=== PATIENT | female | born 1945 ===

== ENCOUNTER 2018-06-18 13:52 | Inpatient (IN) | payer OTHER ==
[2018-06-18 14:01] VITALS: BMI 22.1
[2018-06-18] MEDS ORDERED: Iodixanol 320 MG/ML 100 ML BOTTLE IV ONE (14:08)
[2018-06-18] MEDS ORDERED: Lidocaine 2% PF (10 ml) Amp ONE (14:09)
[2018-06-18] MEDS ORDERED: Verapamil 0 ML ONE (14:09)
--- NOTE | 2018-06-18 14:16 | C.PDOC ---
History Of Present Illness 72 y/o female, w/PMhx of HTN, presents to the ER complaining of shortness of breath and nausea which began when she woke up in the morning today. Patient states that she felt better when she went outside. She notes that she went to a clinic and she had an EKG.Afterwards, she was brought in by ambulance to the hospital. Currently, patient denies having CP, SOB, fever, chills, nausea, vomiting, diaphoresis, and extremity edema. Time Seen by Provider: 06/18/18 13:55 Chief Complaint (Nursing): Shortness Of Breath History Per: Patient History/Exam Limitations: no limitations Onset/Duration Of Symptoms: Hrs Current Symptoms Are (Timing): Gone Severity: Moderate Past Medical History Reviewed: Historical Data, Nursing Documentation, Vital Signs Vital Signs: Last Vital Signs Temp Pulse Resp 16 06/18/18 14:06 BP Pulse Ox 97 06/18/18 14:06 - Medical History PMH: HTN Surgical History: No Surg Hx Family History: States: No Known Family Hx - Social History Hx Alcohol Use: No Hx Substance Use: No - Immunization History Hx Tetanus Toxoid Vaccination: No Hx Influenza Vaccination: No Hx Pneumococcal Vaccination: No Review Of Systems Except As Marked, All Systems Reviewed And Found Negative. Constitutional: Negative for: Fever, Chills Respiratory: Positive for: Shortness of Breath (currently resolved). Negative for: Cough Gastrointestinal: Positive for: Nausea (currently resolved). Negative for: Vomiting Physical Exam - Physical Exam Additional Physical Exam Comments: Constitutional: No acute distress. Head: Normocephalic. Atraumatic. Eyes: PERRL. ENT: Moist mucous membranes. Neck: Supple. Cardiovascular: Regular rate. Radial pulse 2+ bilaterally. Chest: No tenderness. Respiratory: Clear to auscultation bilaterally. GI: Soft. Nontender. Nondistended. Back: No CVA tenderness. Musculoskeletal: No tenderness or swelling of extremities. Skin: No rash. Neurologic: Alert, no focal deficit. ED Course And Treatment - Laboratory Results Result Diagrams: 06/18/18 15:01 06/18/18 15:01 ECG: Interpreted By Me, Viewed By Me ECG Rhythm: Sinus Rhythm Interpretation Of ECG: NSR with LBBB and no concordant ST elevations Rate From EC O2 Sat by Pulse Oximetry: 97 (RA) Pulse Ox Interpretation: Normal Medical Decision Making Medical Decision Making: Plan: --Labs --CXR CXR Results: Date of service: 06/18/2018 PROCEDURE: CHEST RADIOGRAPH, 1 VIEW HISTORY: chest pain COMPARISON: None available. FINDINGS: LUNGS: Clear. PLEURA: No pneumothorax or pleural fluid seen. CARDIOVASCULAR: Normal. OSSEOUS STRUCTURES: No significant abnormalities. VISUALIZED UPPER ABDOMEN: Normal. OTHER FINDINGS: None. IMPRESSION: No active disease. Updates: , job training specialist, immediately reviewed EKG. He recommended treating patient with Brilinta 180 mg and Heparin 5000 units. He states that he will take patient to sugar laboratory assistant. Dr. Womack came to ED to see patient and after evaluating her in person, decided to cancel [facility]. Dr. Roman accepts patient to hospitalist service. Disposition Discussed With : Carlos Womack Doctor Will See Patient In The: ED - Disposition Disposition: HOSPITALIZED Disposition Time: 16:00 Condition: FAIR - Clinical Impression Clinical Impression: Dyspnea, LBBB (left bundle branch block), Heart murmur - Scribe Statement The provider has reviewed the documentation as recorded by the Charly Graham Provider Attestation: All medical record entries made by the Charly were at my direction and pe rsonally dictated by me. I have reviewed the chart and agree that the record accurately reflects my personal performance of the history, physical exam, medical decision making, and the department course for this patient. I have also personally directed, reviewed, and agree with the discharge instructions and disposition.
[2018-06-18 15:06] LABS: BASO % 0.8 % (0.0-2.0); EOS % 0.4 % (0.0-4.0); HEMOGLOBIN 12.5 g/dL (11.0-16.0); LYMPH # 1.5 K/uL (1.0-4.3); LYMPH % 36.6 % (20.0-40.0); MEAN CELL VOLUME 88.2 fL (81.0-99.0); MEAN CORPUSCULAR HEMOGLOBIN 28.9 pg (27.0-31.0); MEAN CORPUSCULAR HGB CONC 32.8 g/dL (33.0-37.0); MEAN PLATELET VOLUME 9.1 fL (7.2-11.7); MONO # 0.3 K/uL (0.0-0.8); MONO % 6.3 % (0.0-10.0); NEUT # 2.3 K/uL (1.8-7.0); NEUT % 55.9 % (50.0-75.0); NRBC % 0.1 % (0.0-2.0); RBC 4.33 Mil/uL (3.80-5.20); RED CELL DISTRIBUTION WIDTH 15.2 % (11.5-14.5); WHITE BLOOD COUNT 4.2 K/uL (4.8-10.8)
[2018-06-18 15:09] LABS: INR 1.1; PROTHROMBIN TIME 11.8 SECONDS (9.7-12.2)
--- NOTE | 2018-06-18 15:10 | RAD ---
Date of service: 06/18/2018 PROCEDURE: CHEST RADIOGRAPH, 1 VIEW HISTORY: chest pain COMPARISON: None available. FINDINGS: LUNGS: Clear. PLEURA: No pneumothorax or pleural fluid seen. CARDIOVASCULAR: Normal. OSSEOUS STRUCTURES: No significant abnormalities. VISUALIZED UPPER ABDOMEN: Normal. OTHER FINDINGS: None. IMPRESSION: No active disease.
[2018-06-18 15:11] LABS: BLOOD UREA NITROGEN 15 mg/dL (7-17); CALCIUM 9.6 mg/dl (8.6-10.4); GFR NON-AFRICAN AMERICAN > 60
[2018-06-18 15:12] LABS: ALB/GLOB RATIO 1.5 (1.0-2.1); ALBUMIN 4.7 g/dL (3.5-5.0); ALT/SGPT 29 U/L (9-52); AST/SGOT 27 U/L (14-36); CK-MB 3.35 ng/mL (0.0-3.38)
[2018-06-18] MEDS ORDERED: Labetalol 5mg/ml (4ml) ONE (15:23)
[2018-06-18] MEDS ORDERED: Labetalol 25mg/5ml Syringe IVP STA (15:25)
--- NOTE | 2018-06-18 15:39 | CP.PCM.CON ---
<Roberto Johnson - Last Filed: 06/18/18 16:21> History of Present Illness - History of Present Illness History of Present Illness: Roberto Johnson, PGY-[address] Woamck CC: Ms. Shah is a pleasant Indian speaking 72 year old Female who presents with shortness of breath and nausea which began when she woke up in the morning. Denies congestion, recent URI, and sick contacts. Patient states that she felt better upon drinking orange juice and going to a medical clinic. She notes that she went to [place] where an EKG was performed with unknown results. Patient was then brought in by ambulance to the hospital. Currently, patient denies having CP, SOB, palpitations, fever, dizziness, headaches, chills, nausea, vomiting, diaphoresis, and extremity edema. Patient states she walks independently and is able to do her ADLs and spend time with family. Denies smoking and family hx of cardiac issues in family. In the ED, EKG concerning for STEMI was evaluated. Recommended treating patient with Brilinta 180 mg and Heparin 5000 units. Past Patient History - Past Social History Smoking Status: Never Smoked - CARDIAC Hx Hypertension: Yes - PSYCHIATRIC Hx Substance Use: No - SURGICAL HISTORY Hx Surgeries: No Meds Allergies/Adverse Reactions: Allergies Allergy/AdvReac Type Severity Reaction Status Date / Time No Known Allergies Allergy Verified 06/18/18 13:53 - Medications Medications: Current Medications Hydralazine HCl (Apresoline) 50 mg PO BID [facility]ERSON Physical Exam - Constitutional Appears: Well, Non-toxic, No Acute Distress - Head Exam Head Exam: ATRAUMATIC, NORMAL INSPECTION, NORMOCEPHALIC - Eye Exam Eye Exam: EOMI, Normal appearance Pupil Exam: PERRL - ENT Exam ENT Exam: Mucous Membranes Moist - Neck Exam Neck exam: Positive for: Normal Inspection - Respiratory Exam Respiratory Exam: Clear to Auscultation Bilateral, NORMAL BREATHING PATTERN. absent: Rales, Rhonchi, Wheezes - Cardiovascular Exam Cardiovascular Exam: Tachycardia, REGULAR RHYTHM, +S1, +S2, Systolic Murmur - GI/Abdominal Exam GI & Abdominal Exam: Soft. absent: Distended, Guarding, Tenderness - Extremities Exam Extremities exam: Positive for: normal inspection. Negative for: pedal edema - Back Exam Back exam: absent: CVA tenderness (L), CVA tenderness (R) - Neurological Exam Neurological exam: Alert, Normal Gait, Oriented x3 - Psychiatric Exam Psychiatric exam: Normal Affect, Normal Mood - Skin Skin Exam: Dry, Intact, Normal Color, Warm Results - Vital Signs Recent Vital Signs: Last Vital Signs Temp Pulse 88 06/18/18 15:25 Resp 18 06/18/18 15:25 BP 186/86 H 06/18/18 15:25 Pulse Ox 100 06/18/18 15:25 - Labs Result Diagrams: 06/18/18 15:01 06/18/18 15:01 Labs: Laboratory Results - last 24 hr 06/18/18 06/18/18 06/18/18 13:58 15:01 15:01 WBC 4.2 L RBC 4.33 Hgb 12.5 Hct 38.2 MCV 88.2 MCH 28.9 MCHC 32.8 L RDW 15.2 H Plt Count 172 MPV 9.1 Neut % (Auto) 55.9 Lymph % (Auto) 36.6 [place] % (Auto) 6.3 Eos % (Auto) 0.4 Baso % (Auto) 0.8 Neut # (Auto) 2.3 Lymph # (Auto) 1.5 [place] # (Auto) 0.3 Eos # (Auto) 0.0 Baso # (Auto) 0.0 PT 11.8 INR 1.1 APTT 35 H Sodium Potassium Chloride Carbon Dioxide Anion Gap BUN Creatinine Est GFR ( Amer) Est GFR (Non-Af Amer) POC Glucose (mg/dL) 91 Random Glucose Calcium Total Bilirubin AST ALT Alkaline Phosphatase Total Creatine Kinase CK-MB (Mass) Troponin I Total Protein Albumin Globulin Albumin/Globulin Ratio 06/18/18 06/18/18 15:01 15:01 WBC RBC Hgb Hct MCV MCH MCHC RDW Plt Count MPV Neut % (Auto) Lymph % (Auto) [place] % (Auto) Eos % (Auto) Baso % (Auto) Neut # (Auto) Lymph # (Auto) [place] # (Auto) Eos # (Auto) Baso # (Auto) PT INR APTT Sodium 143 Potassium 4.0 Chloride 103 Carbon Dioxide 30 Anion Gap 14 BUN 15 Creatinine 0.6 L Est GFR ( Amer) > 60 Est GFR (Non-Af Amer) > 60 POC Glucose (mg/dL) Random Glucose 98 Calcium 9.6 Total Bilirubin 0.5 AST 27 ALT 29 Alkaline Phosphatase 76 Total Creatine Kinase 140 H CK-MB (Mass) 3.35 Troponin I < 0.0120 Total Protein 8.0 Albumin 4.7 Globulin 3.2 Albumin/Globulin Ratio 1.5 Assessment & Plan - Assessment and Plan (Free Text) Assessment: 72 F with HTN on no medications who presents with shortness of breath, hypertensive urgency and abnormal EKG readings. New onset Shortness of Breath CXR shows no pneumothorax or pulmonary embolism; no active disease. EKG shows NSR @ 93 bpm, LBBB without ST elevations. Ticagrelor and Heparin given initially in ED. No cardiac cath warranted at this time. Patient hemodynamically stable and does not complain of chest pain, radiation, pressure, diaphoresis or nausea Prelim echo results show EF 45% with mild MR and TR. F/u repeat EKGs and Trops Plan for Cardiac cath in AM, NPO after midnight Hypertensive Urgency Labetalol 10 mg given in ED F/u renal artery duplex study Hydralazine and Carvedilol for BP control Patient seen, case reviewed and plan discussed with Dr. Womack. Future recs per Raji Womack. Roberto Johnson, PGY-1 <Carlos Womack - Last Filed: 06/18/18 18:46> Meds - Medications Medications: Current Medications Aspirin (Aspirin Chewable) 81 mg PO DAILY [facility] Carvedilol (Coreg) 25 mg PO BID [facility] Dextrose (Dextrose 50% Inj) 0 ml IV STAT PRN; Protocol PRN Reason: Hypoglycemia Protocol Dextrose (Glutose 15) 0 gm PO ONCE PRN; Protocol PRN Reason: Hypoglycemia Protocol Famotidine (Pepcid) 20 mg PO DAILY [facility] Glucagon (Glucagen Diagnostic Kit) 0 mg IM STAT PRN; Protocol PRN Reason: Hypoglycemia Protocol Hydralazine HCl (Apresoline) 10 mg PO QID [facility] Last Admin: 06/18/18 18:26 Dose: 10 mg Dextrose (Dextrose 5% In Water 1000 Ml) 1,000 mls @ 0 mls/hr IV .Q0M PRN; Protocol PRN Reason: Hypoglycemia Protocol Heparin Sodium/Sodium Chloride (Heparin 50102 Units/250ml 1/2 Normal Saline) 25,000 units in 250 mls @ 5.987 mls/hr IV .Q24H PRN; Protocol PRN Reason: PROTOCOL Influenza Virus Vaccine (Fluzone Quad 1527-0900) 60 mcg IM .ONCE ONE Stop: 06/20/18 18:05 Losartan Potassium (Cozaar) 50 mg PO DAILY [facility] Metoprolol Tartrate (Lopressor) 5 mg IVP PRN [place] Pneumococcal Polyvalent Vaccine (Pneumovax 23 Vaccine) 0.5 ml IM .ONCE ONE Stop: 06/20/18 18:05 Results - Vital Signs Recent Vital Signs: Last Vital Signs Temp 98.4 F 06/18/18 17:45 Pulse 65 06/18/18 18:27 Resp 20 06/18/18 17:45 BP 177/75 H 06/18/18 18:27 Pulse Ox 98 06/18/18 17:45 - Labs Result Diagrams: 06/18/18 15:01 06/18/18 15:01 Labs: Laboratory Results - last 24 hr 06/18/18 06/18/18 06/18/18 13:58 15:01 15:01 WBC 4.2 L RBC 4.33 Hgb 12.5 Hct 38.2 MCV 88.2 MCH 28.9 MCHC 32.8 L RDW 15.2 H Plt Count 172 MPV 9.1 Neut % (Auto) 55.9 Lymph % (Auto) 36.6 [place] % (Auto) 6.3 Eos % (Auto) 0.4 Baso % (Auto) 0.8 Neut # (Auto) 2.3 Lymph # (Auto) 1.5 [place] # (Auto) 0.3 Eos # (Auto) 0.0 Baso # (Auto) 0.0 PT 11.8 INR 1.1 APTT 35 H Sodium Potassium Chloride Carbon Dioxide Anion Gap BUN Creatinine Est GFR ( Amer) Est GFR (Non-Af Amer) POC Glucose (mg/dL) 91 Random Glucose Calcium Total Bilirubin AST ALT Alkaline Phosphatase Total Creatine Kinase CK-MB (Mass) Troponin I Total Protein Albumin Globulin Albumin/Globulin Ratio Blood Type Antibody Screen 06/18/18 06/18/18 06/18/18 15:01 15:01 15:19 WBC RBC Hgb Hct MCV MCH MCHC RDW Plt Count MPV Neut % (Auto) Lymph % (Auto) [place] % (Auto) Eos % (Auto) Baso % (Auto) Neut # (Auto) Lymph # (Auto) [place] # (Auto) Eos # (Auto) Baso # (Auto) PT INR APTT Sodium 143 Potassium 4.0 Chloride 103 Carbon Dioxide 30 Anion Gap 14 BUN 15 Creatinine 0.6 L Est GFR ( Amer) > 60 Est GFR (Non-Af Amer) > 60 POC Glucose (mg/dL) Random Glucose 98 Calcium 9.6 Total Bilirubin 0.5 AST 27 ALT 29 Alkaline Phosphatase 76 Total Creatine Kinase 140 H CK-MB (Mass) 3.35 Troponin I < 0.0120 Total Protein 8.0 Albumin 4.7 Globulin 3.2 Albumin/Globulin Ratio 1.5 Blood Type O POSITIVE Antibody Screen Negative 06/18/18 18:28 WBC RBC Hgb Hct MCV MCH MCHC RDW Plt Count MPV Neut % (Auto) Lymph % (Auto) [place] % (Auto) Eos % (Auto) Baso % (Auto) Neut # (Auto) Lymph # (Auto) [place] # (Auto) Eos # (Auto) Baso # (Auto) PT INR APTT Sodium Potassium Chloride Carbon Dioxide Anion Gap BUN Creatinine Est GFR ( Amer) Est GFR (Non-Af Amer) POC Glucose (mg/dL) 90 Random Glucose Calcium Total Bilirubin AST ALT Alkaline Phosphatase Total Creatine Kinase CK-MB (Mass) Troponin I Total Protein Albumin Globulin Albumin/Globulin Ratio Blood Type Antibody Screen Attending/Attestation - Attestation I have personally seen and examined this patient.: Yes I have fully participated in the care of the patient.: Yes I have reviewed all pertinent clinical information: Yes Notes (Text): 06/18/18 18:46 72 yo sent in from office for LBBB SOB echo - EF 45% plan for cath in am IV heparin n npo p mn
--- NOTE | 2018-06-18 16:01 | CP.PCM.HP ---
<George Nunes - Last Filed: 06/18/18 18:47> History of Present Illness - History of Present Illness History of Present Illness: History and physical for Hospitalist service CC "dizziness, nausea" HPI: Patient is a 72 year old [place] Citizen female who presents with her daughter Colleen for evaluation after she was found to have a new left bundle branch block on EKG this morning. Patient states she experienced dizziness described as heaviness in her head and nausea after she woke up at 6:30 this morning. Her daughter Colleen states that she saw that patient looked pale and patient told her she felt unwell this morning. Patient stated that she initially felt warm, however later felt cold after she showered this morning. Patient reports that her dizziness and nausea resolved at around 9am this morning and she states she has not experienced those symptoms since then. Patient also reported that she initially felt tired, however never experienced any chest pressure or palpitations. Laura anand's daughter dropped her children off at school this morning, and then brought her mother in for evaluation at an urgent care. She was found to have elevated blood pressure with systolic BP in 190s, and EKG revealed LBBB. At the urgent care, patient received ASA 325mg, Norvasc 10mg and Nitropaste x1 prior to arriving at the ED via EMS. On arrival, patient continues to deny chest pressure, shortness of breath, headache, dizziness, nausea, vomiting, diaphoresis, lightheadedness, abdominal pain, diarrhea, constipation, leg swelling or leg pain. Patient states that her initial dizziness did not feel like a room spinning sensation. PMD: none PMH: Hypertension PSH: dental surgeries at the age of 49 Family hx: Mother had hypertension. Patient states that her family lives into their 90s Social hx: Denies tobacco, alcohol or drug use. 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 Patient walks briskly/jogs daily. Home meds: None Allergies: NKDA Healthcare proxy: Daughter Colleen Centeno [phone] No living will in place No advanced healthcare directive in place Present on Admission - Present on Admission Any Indicators Present on Admission: No History of DVT/PE: No History of Uncontrolled Diabetes: No Urinary Catheter: No Decubitus Ulcer Present: No Review of Systems - Constitutional Constitutional: Fatigue. absent: Chills, Fever, Weakness - EENT Eyes: absent: Change in Vision Nose/Mouth/Throat: absent: Sinus Pressure, Sore Throat - Cardiovascular Cardiovascular: absent: Chest Pain, Chest Pain at Rest, Diaphoresis, Dyspnea - Respiratory Respiratory: absent: Cough, Dyspnea - Gastrointestinal Gastrointestinal: Nausea. absent: Abdominal Pain, Diarrhea, Vomiting - Genitourinary Genitourinary: absent: Difficulty Urinating, Dysuria, Urinary Incontinence - Musculoskeletal Musculoskeletal: absent: Back Pain, Numbness, Tingling - Neurological Neurological: Dizziness. absent: Confusion, Numbness, Headaches - Psychiatric Psychiatric: absent: Anxiety, Depression Past Patient History - Past Social History Smoking Status: Never Smoked - CARDIAC Hx Hypertension: Yes - PSYCHIATRIC Hx Substance Use: No - SURGICAL HISTORY Hx Surgeries: No Meds Allergies/Adverse Reactions: Allergies Allergy/AdvReac Type Severity Reaction Status Date / Time No Known Allergies Allergy Verified 06/18/18 13:53 Physical Exam - Constitutional Appears: Well, No Acute Distress - Head Exam Head Exam: ATRAUMATIC, NORMOCEPHALIC - Eye Exam Eye Exam: EOMI, PERRL - ENT Exam ENT Exam: Mucous Membranes Moist - Neck Exam Neck exam: Positive for: Full Rom. Negative for: Tenderness - Respiratory Exam Respiratory Exam: Clear to Auscultation Bilateral. absent: Rales, Rhonchi, Wheezes, Stridor - Cardiovascular Exam Cardiovascular Exam: +S1, +S2, Systolic Murmur. absent: Gallop, JVD, Rubs - GI/Abdominal Exam GI & Abdominal Exam: Normal Bowel Sounds, Soft. absent: Distended, Firm, Guarding, Tenderness - Extremities Exam Extremities exam: Positive for: normal capillary refill, pedal pulses present. Negative for: calf tenderness, pedal edema, tenderness - Back Exam Back exam: absent: CVA tenderness (L), CVA tenderness (R) - Neurological Exam Neurological exam: Alert, CN II-XII Intact, Oriented x3 - Psychiatric Exam Psychiatric exam: Normal Affect, Normal Mood - Skin Skin Exam: Dry, Intact, Warm Results - Vital Signs Recent Vital Signs: Last Vital Signs Temp Pulse 88 06/18/18 15:25 Resp 18 06/18/18 15:25 BP 186/86 H 06/18/18 15:25 Pulse Ox 100 06/18/18 15:25 - Labs Result Diagrams: 06/18/18 15:01 06/18/18 15:01 Labs: Laboratory Results - last 24 hr 06/18/18 06/18/18 06/18/18 13:58 15:01 15:01 WBC 4.2 L RBC 4.33 Hgb 12.5 Hct 38.2 MCV 88.2 MCH 28.9 MCHC 32.8 L RDW 15.2 H Plt Count 172 MPV 9.1 Neut % (Auto) 55.9 Lymph % (Auto) 36.6 [place] % (Auto) 6.3 Eos % (Auto) 0.4 Baso % (Auto) 0.8 Neut # (Auto) 2.3 Lymph # (Auto) 1.5 [place] # (Auto) 0.3 Eos # (Auto) 0.0 Baso # (Auto) 0.0 PT 11.8 INR 1.1 APTT 35 H Sodium Potassium Chloride Carbon Dioxide Anion Gap BUN Creatinine Est GFR ( Amer) Est GFR (Non-Af Amer) POC Glucose (mg/dL) 91 Random Glucose Calcium Total Bilirubin AST ALT Alkaline Phosphatase Total Creatine Kinase CK-MB (Mass) Troponin I Total Protein Albumin Globulin Albumin/Globulin Ratio Blood Type Antibody Screen 06/18/18 06/18/18 06/18/18 15:01 15:01 15:19 WBC RBC Hgb Hct MCV MCH MCHC RDW Plt Count MPV Neut % (Auto) Lymph % (Auto) [place] % (Auto) Eos % (Auto) Baso % (Auto) Neut # (Auto) Lymph # (Auto) [place] # (Auto) Eos # (Auto) Baso # (Auto) PT INR APTT Sodium 143 Potassium 4.0 Chloride 103 Carbon Dioxide 30 Anion Gap 14 BUN 15 Creatinine 0.6 L Est GFR ( Amer) > 60 Est GFR (Non-Af Amer) > 60 POC Glucose (mg/dL) Random Glucose 98 Calcium 9.6 Total Bilirubin 0.5 AST 27 ALT 29 Alkaline Phosphatase 76 Total Creatine Kinase 140 H CK-MB (Mass) 3.35 Troponin I < 0.0120 Total Protein 8.0 Albumin 4.7 Globulin 3.2 Albumin/Globulin Ratio 1.5 Blood Type O POSITIVE Antibody Screen Negative Assessment & Plan - Assessment and Plan (Free Text) Plan: Assessment/plan 72 year old [place] Citizen female who presented for complaints of dizziness and nausea, which resolved, however outpatient EKG revealed new left bundle branch block. Admitted for concern for ME Plan Left bundle branch block, rule out acute coronary syndrome ASA 81mg PO In ED: patient received Heparin 5000mg IV Labetalol 10mg IV, Coreg 25mg PO, Brilinta 180mg PO Keep on teletypesetter monitor Cardiology Dr. Womack consulted, help appreciated Plan for cardiac cath tomorrow On Heparin drip NPO past midnight f/u ROMIs f/u lipid panel, TSH, T4, A1c f/u proBNP CXR: no active disease Heart Murmur f/u ECHO report On teletypesetter monitor Hypertensive Urgency Asymptomatic currently BP remains elevated with systolic pressure in 190s In ED: patient received Labetalol 10mg IV, Coreg 25mg PO, Brilinta 180mg PO Coreg 25mg PO BID Losartan 50mg PO daily Hydralazine 10mg PO QID Lopressor 5mg IV PRN Follow up on Renal artery duplex scan Prophylaxis: GI: Pepcid 20mg PO DVT: On Heparin drip, received Heparin 5000mg IV in ED. Case discussed with Dr. Jessie Nunes, PGY1 <Alma Roman V - Last Filed: 06/21/18 05:06> Results - Vital Signs Recent Vital Signs: Last Vital Signs Temp 97.9 F 06/20/18 16:04 Pulse 73 06/20/18 16:04 Resp 20 06/20/18 16:04 BP 150/80 06/20/18 17:30 Pulse Ox 97 06/20/18 16:04 - Labs Result Diagrams: 06/20/18 12:37 06/20/18 12:37 Labs: Laboratory Results - last 24 hr 06/20/18 06/20/18 12:37 12:37 WBC 4.5 L RBC 3.94 Hgb 11.8 Hct 34.8 MCV 88.3 MCH 29.8 MCHC 33.8 RDW 14.7 H Plt Count 162 MPV 9.2 Neut % (Auto) 61.2 Lymph % (Auto) 29.5 [place] % (Auto) 6.9 Eos % (Auto) 1.4 Baso % (Auto) 1.0 Neut # (Auto) 2.8 Lymph # (Auto) 1.3 [place] # (Auto) 0.3 Eos # (Auto) 0.1 Baso # (Auto) 0.0 Sodium 140 Potassium 4.2 Chloride 104 Carbon Dioxide 28 Anion Gap 12 BUN 18 H Creatinine 0.6 L Est GFR ( Amer) > 60 Est GFR (Non-Af Amer) > 60 Random Glucose 81 Calcium 9.5 Phosphorus 4.3 Magnesium 1.9 Total Bilirubin 0.4 AST 22 ALT 17 Alkaline Phosphatase 60 NT-Pro-B Natriuret Pep 228 Total Protein 7.0 Albumin 4.0 Globulin 3.0 Albumin/Globulin Ratio 1.3 Assessment & Plan (1) Coronary artery disease Status: Acute (2) Mild left ventricular systolic dysfunction Status: Acute (3) Hypertensive urgency Status: Acute (4) Lipid disorder Status: Acute Attending/Attestation - Attestation I have personally seen and examined this patient.: Yes I have fully participated in the care of the patient.: Yes I have reviewed all pertinent clinical information: Yes Notes (Text): This is late computer entry for 06/18/18. Patient seen, examined and case discussed with diploma medical assistant and cardiology. Patient's daughter noted this morning patient reported was not feeling well and appeared pale, which was out of character for her, who is normally very active. Patient had went to urgent care center; noted EKG for LBBB and directed to go the Emergency Room. Patient brought in via ambulance. Patient given Norvasc 10mg PO X1 at the urgent care and aspirin. Patient was called as [facility] in the ED, which was ultimately cancelled by cardiology. Patient underwent echocardiogram given noted for mitral regurgitation, per discussion with cardiology noted wall motion abnormality prompting for cardiac cath in the morning. Patient denies chest pain, denies palpitations, denies headache, denies nausea, denies vomitting, denies abdominal pain, denies numbness, denies tingling. Patient's blood pressure uncontrolled as high as SBP: 200s. Per discussion with daughter, patient's SBP in 180s. Patient usually does her routine health maintenance in [place] on occasion. For patient's uncontrolled, start oral medications: Coreg 25mg PO BID, Hydralazine 10mg PO QID, Losartan 50mg PO daily. In ED, patient given labetolol 10mg IVX1. Per code heart protocol, patient had received loading dose of Brilinta and heparin bolus, prior to code heart being cancelled by shelter director. Assessment/Plan 1) New onset Left bundle branch block Assessment/Plan * Cardiology (Dr. Womack) on the case--> help appreciated * Code heart called in ED, cancelled by shelter director * Per code heart protocol, patient received Heparin 5000mg IV bolus X1, Brilinta 180mg PO X1. Prior to ED arrival, patient had received Aspirin and Norvasc 10mg POX1. * Echocardiogram * Cardiac risk factor: hypertension * Check risk factors: hgba1c, lipid panel, TSH, Free T4 * ADDI X3, 6 hours with EKG, probnp * Chest Xray * Based on read on echocardiogram and abnormal EKG, patient scheduled for cardiac cath in AM, and started on heparin drip. * Aspirin 81mg PO daily 2) Heart Murmur Assessment/Plan * Awaiting official ECHO report 3) Hypertensive Urgency Assessment/Plan * Asymptomatic currently * BP remains elevated with systolic pressure in 190s * In ED: patient received Labetalol 10mg IV X1, Coreg 25mg PO X1 * Start Coreg 25mg PO BID, Losartan 50mg PO daily, Hydralazine 10mg PO QID, Lopressor 5mg IV Q6H PRN SBP>160 * Follow up on Renal artery duplex scan r/o renal artery stenosis 4) Prophylaxis: * GI Ppx: Pepcid 20mg PO bid * DVT ppx: Heparin drip Disposition: Based on read on echocardiogram and abnormal EKG, patient scheduled for cardiac cath in AM, and started on heparin drip. optimize blood pressure.
[2018-06-18] MEDS ORDERED: Dextrose 50% SYRINGE Inj (50 ml) IV PRN (16:05)
[2018-06-18] MEDS ORDERED: Glucagon Recombinant 1 mg Inj IM PRN (16:05)
[2018-06-18] MEDS ORDERED: Heparin25000 units/250ml 1/2NS 25,000 UNITS/250 ML BAG IV PRN (19:00)
[2018-06-18 20:27] LABS: CK-MB 2.37 ng/mL (0.0-3.38)
[2018-06-19] MEDS ORDERED: Metoprolol 1 mg/ml Inj IVP SCH
[2018-06-19] MEDS ORDERED: Lidocaine Hydrochloride 10 ML INJ ONE (06:40)
[2018-06-19] MEDS ORDERED: Nitroglycerin 50mg in D5W 50 MG/250 ML BOTTLE IV ONE (06:44)
[2018-06-19] MEDS ORDERED: Verapamil 2 ML ONE (06:44)
[2018-06-19] MEDS ORDERED: Midazolam 2 MG/2 ML VIAL ONE (06:48)
[2018-06-19 06:52] LABS: BASO % 1.1 % (0.0-2.0); EOS # 0.1 K/uL (0.0-0.7); HEMOGLOBIN 12.6 g/dL (11.0-16.0); LYMPH # 1.3 K/uL (1.0-4.3); LYMPH % 34.4 % (20.0-40.0); MEAN CELL VOLUME 88.8 fL (81.0-99.0); MEAN CORPUSCULAR HEMOGLOBIN 29.3 pg (27.0-31.0); MEAN PLATELET VOLUME 9.3 fL (7.2-11.7); MONO # 0.3 K/uL (0.0-0.8); MONO % 6.8 % (0.0-10.0); NEUT # 2.1 K/uL (1.8-7.0); NEUT % 55.7 % (50.0-75.0); NRBC % 0.1 % (0.0-2.0); RBC 4.29 Mil/uL (3.80-5.20); RED CELL DISTRIBUTION WIDTH 14.9 % (11.5-14.5); WHITE BLOOD COUNT 3.8 K/uL (4.8-10.8)
[2018-06-19 07:06] LABS: ALB/GLOB RATIO 1.3 (1.0-2.1); ALBUMIN 4.2 g/dL (3.5-5.0); ALT/SGPT 24 U/L (9-52); AST/SGOT 23 U/L (14-36); BLOOD UREA NITROGEN 18 mg/dL (7-17); CALCIUM 9.6 mg/dl (8.6-10.4); GFR NON-AFRICAN AMERICAN > 60; HDL CHOLESTEROL 71 mg/dL (30-70)
[2018-06-19 07:14] LABS: B-TYPE NATRIURETIC PEPTIDE 916 pg/mL (0-900)
[2018-06-19 07:17] LABS: LDL CHOLESTEROL 131 mg/dL (0-129)
--- NOTE | 2018-06-19 13:01 | CP.PCM.DIS ---
Provider - Provider Date of Admission: 06/18/18 15:38 Attending physician: Alma Roman DO Primary care physician: None Time Spent in preparation of Discharge (in minutes): 45 Hospital Course - Lab Results Lab Results: Most Recent Lab Values WBC 3.8 K/uL (4.8-10.8) L 06/19/18 06:46 RBC 4.29 Mil/uL (3.80-5.20) 06/19/18 06:46 Hgb 12.6 g/dL (11.0-16.0) 06/19/18 06:46 Hct 38.1 % (34.0-47.0) 06/19/18 06:46 MCV 88.8 fL (81.0-99.0) 06/19/18 06:46 MCH 29.3 pg (27.0-31.0) 06/19/18 06:46 MCHC 33.0 g/dL (33.0-37.0) 06/19/18 06:46 RDW 14.9 % (11.5-14.5) H 06/19/18 06:46 Plt Count 183 K/uL (130-400) 06/19/18 06:46 MPV 9.3 fL (7.2-11.7) 06/19/18 06:46 Neut % (Auto) 55.7 % (50.0-75.0) 06/19/18 06:46 Lymph % (Auto) 34.4 % (20.0-40.0) 06/19/18 06:46 [place] % (Auto) 6.8 % (0.0-10.0) 06/19/18 06:46 Eos % (Auto) 2.0 % (0.0-4.0) 06/19/18 06:46 Baso % (Auto) 1.1 % (0.0-2.0) 06/19/18 06:46 Neut # (Auto) 2.1 K/uL (1.8-7.0) 06/19/18 06:46 Lymph # (Auto) 1.3 K/uL (1.0-4.3) 06/19/18 06:46 [place] # (Auto) 0.3 K/uL (0.0-0.8) 06/19/18 06:46 Eos # (Auto) 0.1 K/uL (0.0-0.7) 06/19/18 06:46 Baso # (Auto) 0.0 K/uL (0.0-0.2) 06/19/18 06:46 PT 11.8 SECONDS (9.7-12.2) 06/18/18 15:01 INR 1.1 06/18/18 15:01 APTT 60 SECONDS (21-34) H D 06/19/18 02:18 Sodium 142 mmol/L (132-148) 06/19/18 06:46 Potassium 3.7 mmol/L (3.6-5.2) 06/19/18 06:46 Chloride 102 mmol/L (98-107) 06/19/18 06:46 Carbon Dioxide 30 mmol/L (22-30) 06/19/18 06:46 Anion Gap 14 (10-20) 06/19/18 06:46 BUN 18 mg/dL (7-17) H 06/19/18 06:46 Creatinine 0.8 mg/dL (0.7-1.2) 06/19/18 06:46 Est GFR ( Amer) > 60 06/19/18 06:46 Est GFR (Non-Af Amer) > 60 06/19/18 06:46 POC Glucose (mg/dL) 87 mg/dL (65-110) 06/19/18 06:23 Random Glucose 96 mg/dL (65-105) 06/19/18 06:46 Hemoglobin A1c 5.6 % (4.2-6.5) 06/19/18 06:46 Calcium 9.6 mg/dl (8.6-10.4) 06/19/18 06:46 Phosphorus 3.8 mg/dL (2.5-4.5) 06/19/18 06:46 Magnesium 2.1 mg/dL (1.6-2.3) 06/19/18 06:46 Total Bilirubin 0.8 mg/dL (0.2-1.3) 06/19/18 06:46 AST 23 U/L (14-36) 06/19/18 06:46 ALT 24 U/L (9-52) 06/19/18 06:46 Alkaline Phosphatase 69 U/L (38-126) 06/19/18 06:46 Total Creatine Kinase 85 U/L (30-135) 06/19/18 02:18 CK-MB (Mass) 2.00 ng/mL (0.0-3.38) 06/19/18 02:18 Troponin I < 0.0120 ng/mL (0.00-0.120) 06/19/18 02:18 NT-Pro-B Natriuret Pep 916 pg/mL (0-900) H 06/19/18 06:46 Total Protein 7.5 g/dL (6.3-8.3) 06/19/18 06:46 Albumin 4.2 g/dL (3.5-5.0) 06/19/18 06:46 Globulin 3.3 gm/dL (2.2-3.9) 06/19/18 06:46 Albumin/Globulin Ratio 1.3 (1.0-2.1) 06/19/18 06:46 Triglycerides 63 mg/dL (0-149) 06/19/18 06:46 Cholesterol 229 mg/dL (0-199) H 06/19/18 06:46 LDL Cholesterol Direct 131 mg/dL (0-129) H 06/19/18 06:46 HDL Cholesterol 71 mg/dL (30-70) H 06/19/18 06:46 Free T4 1.15 ng/dL (0.78-2.19) 06/19/18 06:46 TSH 3rd Generation 6.04 mIU/L (0.46-4.68) H 06/19/18 06:46 Blood Type O POSITIVE 06/18/18 15:19 Antibody Screen Negative 06/18/18 15:19 - Date & Time of H&P Date of H&P: 06/19/18 Time of H&P: 12:59 Discharge Exam - Head Exam Head Exam: ATRAUMATIC, NORMOCEPHALIC - Eye Exam Eye Exam: EOMI, Normal appearance - Respiratory Exam Respiratory Exam: Clear to PA & Lateral, NORMAL BREATHING PATTERN - Cardiovascular Exam Cardiovascular Exam: Systolic Murmur - GI/Abdominal Exam GI & Abdominal Exam: Normal Bowel Sounds, Unremarkable - Psychiatric Exam Psychiatric exam: Normal Affect, Normal Mood - Skin Skin Exam: Dry, Intact, Normal Color, Warm Discharge Plan - Discharge Medications Prescriptions: Aspirin [Aspirin Chewable] 81 mg PO DAILY #90 chew Carvedilol [Coreg] 25 mg PO BID #120 tab hydrALAZINE [Apresoline] 25 mg PO TID #90 tab Losartan [Cozaar] 100 mg PO DAILY 90 Days #90 tab - Follow Up Plan Condition: FAIR Disposition: HOME/ ROUTINE
--- NOTE | 2018-06-19 15:59 | CP.PCM.PN ---
<Aurelia Linton - Last Filed: 06/19/18 17:02> Subjective - Date & Time of Evaluation Date of Evaluation: 06/19/18 Time of Evaluation: 15:56 - Subjective Subjective: Patient returned from cardiac cath this morning. She is without complaints. Denies chest pain, shortness of breath, palpitations. She would like to go home. Objective - Vital Signs/Intake and Output Vital Signs (last 24 hours): Temp Pulse Resp BP Pulse Ox 97.9 F 67 20 148/63 97 06/19/18 15:00 06/19/18 15:00 06/19/18 15:00 06/19/18 15:00 06/19/18 15:00 Intake and Output: 06/19/18 06/19/18 06:59 18:59 Intake Total 389 Output Total 450 Balance -61 - Medications Medications: Current Medications Aspirin (Aspirin Chewable) 81 mg PO DAILY [facility] Last Admin: 06/19/18 09:46 Dose: 81 mg Carvedilol (Coreg) 25 mg PO BID [facility] Last Admin: 06/19/18 09:46 Dose: 25 mg Dextrose (Dextrose 50% Inj) 0 ml IV STAT PRN; Protocol PRN Reason: Hypoglycemia Protocol Dextrose (Glutose 15) 0 gm PO ONCE PRN; Protocol PRN Reason: Hypoglycemia Protocol Famotidine (Pepcid) 20 mg PO DAILY [facility] Last Admin: 06/19/18 09:46 Dose: 20 mg Glucagon (Glucagen Diagnostic Kit) 0 mg IM STAT PRN; Protocol PRN Reason: Hypoglycemia Protocol Hydralazine HCl (Apresoline) 50 mg PO TID [facility] Dextrose (Dextrose 5% In Water 1000 Ml) 1,000 mls @ 0 mls/hr IV .Q0M PRN; Protocol PRN Reason: Hypoglycemia Protocol Heparin Sodium/Sodium Chloride (Heparin 00477 Units/250ml 1/2 Normal Saline) 25,000 units in 250 mls @ 5.987 mls/hr IV .Q24H PRN; Protocol PRN Reason: PROTOCOL Last Admin: 06/18/18 19:54 Dose: 12 units/kg/hr, 5.987 mls/hr Influenza Virus Vaccine (Fluzone Quad [id number]) 60 mcg IM .ONCE ONE Stop: 06/20/18 18:05 Losartan Potassium (Cozaar) 100 mg PO DAILY [facility] Metoprolol Tartrate (Lopressor) 5 mg IVP PRN [facility] Pneumococcal Polyvalent Vaccine (Pneumovax 23 Vaccine) 0.5 ml IM .ONCE ONE Stop: 06/20/18 18:05 Rosuvastatin Calcium (Crestor) 20 mg PO HS [facility] - Labs Labs: 06/19/18 06:46 06/19/18 06:46 PT 11.8 SECONDS (9.7-12.2) 06/18/18 15:01 INR 1.1 06/18/18 15:01 APTT 60 SECONDS (21-34) H D 06/19/18 02:18 - Constitutional Appears: Well, Non-toxic - Head Exam Head Exam: ATRAUMATIC, NORMAL INSPECTION - Eye Exam Eye Exam: EOMI, Normal appearance - Neck Exam Neck Exam: Normal Inspection - Respiratory Exam Respiratory Exam: Clear to Ausculation Bilateral, NORMAL BREATHING PATTERN - Cardiovascular Exam Cardiovascular Exam: Murmur Additional comments: soft holosystolic murmur on all cardiac listening posts - GI/Abdominal Exam GI & Abdominal Exam: Soft, Normal Bowel Sounds - Extremities Exam Extremities Exam: Normal Inspection - Neurological Exam Neurological Exam: Alert, Awake, Oriented x3 - Psychiatric Exam Psychiatric exam: Normal Affect, Normal Mood - Skin Additional comments: left wrist with hematoma and bandaged s/p cath procedure Assessment and Plan - Assessment and Plan (Free Text) Assessment: 72 y/o female from [place] admitted yesterday 06/18 after dizziness found to have LBBB and HTN urgency. Patient is now s/p cardiac cath this morning 06/19 and is hemodynamically stable on [email or web address]. 1) r/o ACS -LBBB on admission EKG -lipid panel elevated chol 229, LDL 131, HDL 71. TSH wnl. -f/u A1c -ASA 81 mg -lipitor 80 mg qhs -hydralazine 50 mg TID -coreg 25 mg BID -cozaar 100 mg -Dr. 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 Jessie Linton, PGY-1 <Alma Roman V - Last Filed: 06/21/18 05:20> Objective - Vital Signs/Intake and Output Vital Signs (last 24 hours): Temp Pulse Resp BP Pulse Ox 97.9 F 73 20 150/80 97 06/20/18 16:04 06/20/18 16:04 06/20/18 16:04 06/20/18 17:30 06/20/18 16:04 - Labs Labs: 06/20/18 12:37 06/20/18 12:37 PT 11.8 SECONDS (9.7-12.2) 06/18/18 15:01 INR 1.1 06/18/18 15:01 APTT 60 SECONDS (21-34) H D 06/19/18 02:18 Assessment and Plan (1) Coronary artery disease Status: Acute (2) Mild left ventricular systolic dysfunction Status: Acute (3) Hypertensive urgency Status: Acute (4) Lipid disorder Status: Acute Attending/Attestation - Attestation I have personally seen and examined this patient.: Yes I have fully participated in the care of the patient.: Yes I have reviewed all pertinent clinical information, including history, physical exam and plan: Yes Notes (Text): This is late computer entry for 06/19/18. Patient seen, examined, and case discussed day-time resident. Patient underwent cardiac cath in the morning. Patient seen subsequently post cath. Patient has ecchymoses over the left wrist; pulses intact, capillary refill within 2 seconds. Optimize blood pressure medications Observe overnight for possible discharge this morning Assessment/Plan 1) New onset Left bundle branch block Assessment/Plan * Cardiology (Dr. Womack) on the case--> help appreciated * Code heart called in ED, cancelled by hydrochloric area supervisor * Per code heart protocol, patient received Heparin 5000mg IV bolus X1, Brilinta 180mg PO X1. Prior to ED arrival, patient had received Aspirin and Norvasc 10mg POX1. * Echocardiogram * Cardiac risk factor: hypertension * Hgba1c: 5.6 * T, Chol: 229, LDL: 131, HDL: 71 * TSH: 6.04, Free T4: 1.15 * Probnp: 916 * Negative 3 ADDI * Chest Xray: no active disease * Aspirin 81mg PO daily * Based on read on echocardiogram and abnormal EKG by cardiology, patient underwent cardiac cath today and heparin d/c post cath. Awaiting official report. Discussed with cardiology, likely follow-up in 1-2 weeks in the office. 2) Heart Murmur Assessment/Plan * Awaiting official ECHO report 3) Hypertensive Urgency Assessment/Plan * Asymptomatic currently * Improving * In ED: patient received Labetalol 10mg IV X1, Coreg 25mg PO X1 * Start Coreg 25mg PO BID, Losartan 100mg PO daily, Hydralazine 50mg PO TID, Lopressor 5mg IV Q6H PRN SBP>160 * Follow up on Renal artery duplex scan r/o renal artery stenosis 4) Prophylaxis: * GI Ppx: Pepcid 20mg PO bid Disposition: Based on read on echocardiogram and abnormal EKG, patient underwent cardiac cath this morning. Optimize blood pressure prior to discharge.
[2018-06-19 16:29] LABS: EOS # 0.1 K/uL (0.0-0.7); EOS % 1.2 % (0.0-4.0); HEMOGLOBIN 11.2 g/dL (11.0-16.0); LYMPH # 1.5 K/uL (1.0-4.3); LYMPH % 34.9 % (20.0-40.0); MEAN CELL VOLUME 89.1 fL (81.0-99.0); MEAN CORPUSCULAR HEMOGLOBIN 29.2 pg (27.0-31.0); MEAN CORPUSCULAR HGB CONC 32.8 g/dL (33.0-37.0); MONO # 0.3 K/uL (0.0-0.8); MONO % 7.9 % (0.0-10.0); NEUT # 2.3 K/uL (1.8-7.0); RBC 3.83 Mil/uL (3.80-5.20); RED CELL DISTRIBUTION WIDTH 14.8 % (11.5-14.5); WHITE BLOOD COUNT 4.3 K/uL (4.8-10.8)
--- NOTE | 2018-06-19 18:52 | CARDCATH ---
PROCEDURE DATE: 06/19/2018 INDICATION: Ms. Piper Shah is a 72-year-old female who presented to [facility] with complaints of chest pain and shortness of breath, and was found to have new onset left bundle branch block, underwent a STAT echocardiogram, which showed mild LV systolic dysfunction. Therefore she was brought to the laboratory aide for further evaluation and treatment of new onset CHF and left bundle branch block. PROCEDURES PERFORMED: Left heart catheterization with selective left and right coronary angiogram via left radial approach, 6 [place] left radial arterial access, wrist band for hemostasis. Hemodynamic findings of the left ventricle and RV systolic pressure was 40 mmHg. There was no pain noted from the aortic valve . Left ventricular ejection fraction estimated to be 45% with mild global hypokinesis, coronary anatomy, left main is large sized vessel, bifurcates into the LAD, ramus and circumflex coronary artery. LAD is a large sized vessel with mild luminal irregularity, gives off two small size diagonal branches, ramus intermedius, is a medial vessel, has ostium of 70% stenosis. Left circumflex runs in the AV groove, gives off the obtuse marginal branch, which has ostial 60% stenosis, RCA is a large sized vessel, gives off PDA branches with luminal irregularities, ejection fraction of 45%. IMPRESSION: Mild left ventricular systolic dysfunction, moderate two vessel coronary artery disease. RECOMMENDATIONS: Aggressive medical management, risk factor modification, keep the patient on aspirin, statin and beta-blockers and follow up with Dr. Womack in one to two weeks. Carlos Womack MD
[2018-06-20 08:25] VITALS: O2SAT 97
--- NOTE | 2018-06-20 10:53 | CP.PCM.DIS ---
Provider - Provider Date of Admission: 06/18/18 15:38 Attending physician: Alma Roman DO Consults: Dr. Womack Time Spent in preparation of Discharge (in minutes): 31 Diagnosis - Discharge Diagnosis (1) Coronary artery disease Status: Acute (2) Mild left ventricular systolic dysfunction Status: Acute (3) Hypertensive urgency Status: Acute (4) Lipid disorder Status: Acute Hospital Course - Lab Results Lab Results: Most Recent Lab Values WBC 4.3 K/uL (4.8-10.8) L 06/19/18 16:22 RBC 3.83 Mil/uL (3.80-5.20) 06/19/18 16:22 Hgb 11.2 g/dL (11.0-16.0) 06/19/18 16:22 Hct 34.2 % (34.0-47.0) 06/19/18 16:22 MCV 89.1 fL (81.0-99.0) 06/19/18 16:22 MCH 29.2 pg (27.0-31.0) 06/19/18 16:22 MCHC 32.8 g/dL (33.0-37.0) L 06/19/18 16:22 RDW 14.8 % (11.5-14.5) H 06/19/18 16:22 Plt Count 157 K/uL (130-400) 06/19/18 16:22 MPV 9.0 fL (7.2-11.7) 06/19/18 16:22 Neut % (Auto) 55.0 % (50.0-75.0) 06/19/18 16:22 Lymph % (Auto) 34.9 % (20.0-40.0) 06/19/18 16:22 Brown % (Auto) 7.9 % (0.0-10.0) 06/19/18 16:22 Eos % (Auto) 1.2 % (0.0-4.0) 06/19/18 16:22 Baso % (Auto) 1.0 % (0.0-2.0) 06/19/18 16:22 Neut # (Auto) 2.3 K/uL (1.8-7.0) 06/19/18 16:22 Lymph # (Auto) 1.5 K/uL (1.0-4.3) 06/19/18 16:22 Brown # (Auto) 0.3 K/uL (0.0-0.8) 06/19/18 16:22 Eos # (Auto) 0.1 K/uL (0.0-0.7) 06/19/18 16:22 Baso # (Auto) 0.0 K/uL (0.0-0.2) 06/19/18 16:22 PT 11.8 SECONDS (9.7-12.2) 06/18/18 15:01 INR 1.1 06/18/18 15:01 APTT 60 SECONDS (21-34) H D 06/19/18 02:18 Sodium 142 mmol/L (132-148) 06/19/18 06:46 Potassium 3.7 mmol/L (3.6-5.2) 06/19/18 06:46 Chloride 102 mmol/L (98-107) 06/19/18 06:46 Carbon Dioxide 30 mmol/L (22-30) 06/19/18 06:46 Anion Gap 14 (10-20) 06/19/18 06:46 BUN 18 mg/dL (7-17) H 06/19/18 06:46 Creatinine 0.8 mg/dL (0.7-1.2) 06/19/18 06:46 Est GFR ( Amer) > 60 06/19/18 06:46 Est GFR (Non-Af Amer) > 60 06/19/18 06:46 POC Glucose (mg/dL) 109 mg/dL (65-110) 06/19/18 21:34 Random Glucose 96 mg/dL (65-105) 06/19/18 06:46 Hemoglobin A1c 5.6 % (4.2-6.5) 06/19/18 06:46 Calcium 9.6 mg/dl (8.6-10.4) 06/19/18 06:46 Phosphorus 3.8 mg/dL (2.5-4.5) 06/19/18 06:46 Magnesium 2.1 mg/dL (1.6-2.3) 06/19/18 06:46 Total Bilirubin 0.8 mg/dL (0.2-1.3) 06/19/18 06:46 AST 23 U/L (14-36) 06/19/18 06:46 ALT 24 U/L (9-52) 06/19/18 06:46 Alkaline Phosphatase 69 U/L (38-126) 06/19/18 06:46 Total Creatine Kinase 85 U/L (30-135) 06/19/18 02:18 CK-MB (Mass) 2.00 ng/mL (0.0-3.38) 06/19/18 02:18 Troponin I < 0.0120 ng/mL (0.00-0.120) 06/19/18 02:18 NT-Pro-B Natriuret Pep 916 pg/mL (0-900) H 06/19/18 06:46 Total Protein 7.5 g/dL (6.3-8.3) 06/19/18 06:46 Albumin 4.2 g/dL (3.5-5.0) 06/19/18 06:46 Globulin 3.3 gm/dL (2.2-3.9) 06/19/18 06:46 Albumin/Globulin Ratio 1.3 (1.0-2.1) 06/19/18 06:46 Triglycerides 63 mg/dL (0-149) 06/19/18 06:46 Cholesterol 229 mg/dL (0-199) H 06/19/18 06:46 LDL Cholesterol Direct 131 mg/dL (0-129) H 06/19/18 06:46 HDL Cholesterol 71 mg/dL (30-70) H 06/19/18 06:46 Free T4 1.15 ng/dL (0.78-2.19) 06/19/18 06:46 TSH 3rd Generation 6.04 mIU/L (0.46-4.68) H 06/19/18 06:46 Blood Type O POSITIVE 06/18/18 15:19 Antibody Screen Negative 06/18/18 15:19 - Hospital Course Hospital Course: As per H&P CC "dizziness, nausea" HPI: Patient is a 72 year old [place]ian female who presents with her daughter Colleen for evaluation after she was found to have a new left bundle branch block on EKG this morning. Patient states she experienced dizziness described as heaviness in her head and nausea after she woke up at 6:30 this morning. Her daughter Colleen states that she saw that patient looked pale and patient told her she felt unwell this morning. Patient stated that she initially felt warm, however later felt cold after she showered this morning. Patient reports that her dizziness and nausea resolved at around 9am this morning and she states she has not experienced those symptoms since then. Patient also reported that she initially felt tired, however never experienced any chest pressure or palpitations. Patient's daughter dropped her children off at school this morning, and then brought her mother in for evaluation at an urgent care. She was found to have elevated blood pressure with systolic BP in 190s, and EKG revealed LBBB. At the urgent care, patient received ASA 325mg, Norvasc 10mg and Nitropaste x1 prior to arriving at the ED via EMS. On arrival, patient continues to deny chest pressure, shortness of breath, headache, dizziness, nausea, vomiting, diaphoresis, lightheadedness, abdominal pain, diarrhea, constipation, leg swelling or leg pain. Patient states that her initial dizziness did not feel like a room spinning sensation. PMD: none PMH: Hypertension PSH: dental surgeries at the age of 49 Family hx: Mother had hypertension. Patient states that her family lives into their 90s Social hx: Denies tobacco, alcohol or drug use. Used to work at a [employer]iaison in [place]. Patient walks briskly/jogs daily. Home meds: None Allergies: NKDA Healthcare proxy: Daughter Colleen Centeno [phone] No living will in place No advanced healthcare directive in place Patient monitored on telemetry for new onset LBBB and hypertensive urgency. Cardiology consulted on the case. Patient underwent cardiac cath which showed m ild left ventricular systolic dysfunction, moderate two vessel coronary artery disease. Per cardiology stable for discharge. Medications upon discharge: 1) Aspirin 81mg 1 tab once day 2) Coreg 25mg 1 tab twice a day 3) Hydralazine 50mg 1 tab 8 hours a apart three times day 4) Cozaar 10mg tab a day 5) Crestor 20mg 1 tab at night Discharge Diagnoses: 1) LBBB-->code heart which was cancelled by offset plate maker, patient underwent echo and cardiac cath, cardiac enzymes negative. recommended aggressive medical management 2) Lipid disorder-->diet/exercise modifications; start statin; discussed side e ffects of medications with patient's daughter in regards to muscle aches and pains 3) Hypertensive urgency-->recommend diet/exercise modifications, new medications: beta mirza, hydralazine, arb Patient recommended to follow-up at the offset plate maker's office in 2 weeks in [place]. Patient recommended to establish care at the [facility] in [place], located [address]; call on Friday [phone]. This is a summary of patient's hospitalization. Please refer to EMR for further details. - Date & Time of H&P Date of H&P: 06/18/18 Discharge Exam - Head Exam Head Exam: ATRAUMATIC, NORMAL INSPECTION - Eye Exam Eye Exam: EOMI Pupil Exam: NORMAL ACCOMODATION - ENT Exam ENT Exam: Mucous Membranes Moist - Respiratory Exam Respiratory Exam: Clear to PA & Lateral, NORMAL BREATHING PATTERN. absent: Rales, Rhonchi - Cardiovascular Exam Cardiovascular Exam: REGULAR RHYTHM, +S1, +S2 - GI/Abdominal Exam GI & Abdominal Exam: Normal Bowel Sounds, Soft. absent: Distended, Firm, Guarding, Rebound, Rigid, Tenderness - Extremities Exam Extremities exam: pedal pulses present - Neurological Exam Neurological exam: Alert, Oriented x3 - Psychiatric Exam Psychiatric exam: Normal Affect, Normal Mood - Skin Skin Exam: Dry, Intact, Warm Additional comments: left hand: ecchymoses fading radial pulse intact capillary refill <2 sec Discharge Plan - Discharge Medications Prescriptions: Aspirin [Aspirin Chewable] 81 mg PO DAILY #90 chew Atorvastatin Calcium [Lipitor] 80 mg PO HS #30 tablet Carvedilol [Coreg] 25 mg PO BID #60 tab hydrALAZINE [Apresoline] 50 mg PO TID #90 tab Losartan [Cozaar] 100 mg PO DAILY 90 Days #90 tab - Follow Up Plan Condition: STABLE Disposition: HOME/ ROUTINE Patient education suggested?: Yes Instructions: Coronary Heart Disease, Coronary Heart Disease in Women Referrals: Carlos Womack MD [Staff Provider] - 2 Weeks (Patient to call for appointment in 2 weeks at the [place] office)
[2018-06-20 12:41] LABS: EOS # 0.1 K/uL (0.0-0.7); EOS % 1.4 % (0.0-4.0); HEMOGLOBIN 11.8 g/dL (11.0-16.0); LYMPH # 1.3 K/uL (1.0-4.3); LYMPH % 29.5 % (20.0-40.0); MEAN CELL VOLUME 88.3 fL (81.0-99.0); MEAN CORPUSCULAR HEMOGLOBIN 29.8 pg (27.0-31.0); MEAN CORPUSCULAR HGB CONC 33.8 g/dL (33.0-37.0); MEAN PLATELET VOLUME 9.2 fL (7.2-11.7); MONO # 0.3 K/uL (0.0-0.8); MONO % 6.9 % (0.0-10.0); NEUT # 2.8 K/uL (1.8-7.0); NEUT % 61.2 % (50.0-75.0); RBC 3.94 Mil/uL (3.80-5.20); RED CELL DISTRIBUTION WIDTH 14.7 % (11.5-14.5); WHITE BLOOD COUNT 4.5 K/uL (4.8-10.8)
[2018-06-20 13:30] LABS: B-TYPE NATRIURETIC PEPTIDE 228 pg/mL (0-900)
[2018-06-20 13:42] LABS: ALB/GLOB RATIO 1.3 (1.0-2.1); ALT/SGPT 17 U/L (9-52); AST/SGOT 22 U/L (14-36); BLOOD UREA NITROGEN 18 mg/dL (7-17); CALCIUM 9.5 mg/dl (8.6-10.4); GFR NON-AFRICAN AMERICAN > 60
[2018-06-20 16:05] VITALS: PULSE 73; RESP 20; TEMP 97.9
[2018-06-20 17:31] VITALS: BP 150/80
[2018-06-20] MEDS ORDERED: Influenza Vaccine 60 MCG/0.5 ML SYR (3 yr & up) IM ONE (18:04)
[2018-06-20] MEDS ORDERED: Pneumococcal 23-Valent Vaccine IM ONE (18:04)
--- NOTE | 2018-06-22 08:13 | CARD ---
APPROVED REPORT Date of service: 06/18/2018 EXAM: Two-dimensional and M-mode echocardiogram with Doppler and color Doppler. Other Information Quality : GoodRhythm : INDICATION Dyspnea RISK FACTORS Hypertension 2D DIMENSIONS IVSd1.3 (0.7-1.1cm)LVDd4.5 (3.9-5.9cm) PWd1.0 (0.7-1.1cm)LA [id number] (18-58mL) LVDs3.0 (2.5-4.0cm)FS (%) 33.7 % LVEF (%)45.0 (>50%)LVEF (Barcenas's)45.50 % M-Mode DIMENSIONS Left Atrium (MM)3.95 (2.5-4.0cm)IVSd0.84 (0.7-1.1cm) Aortic Root3.40 (2.2-3.7cm)LVDd4.67 (4.0-5.6cm) Aortic Cusp Exc.1.68 (1.5-2.0cm)PWd1.02 (0.7-1.1cm) FS (%) 23 %LVDs3.60 (2.0-3.8cm) LVEF (%)46 (>50%) Aortic Valve AI P 1/2 [id number] Mitral Valve MV E Elwxuqgc60.3cm/sMV A Ozqtdedp536.1cm/sE/A ratio0.4 TDI Lateral E' Peak V5.37cm/sMedial E' Peak V3.25cm/sE/Lateral E'8.4 E/Medial E'13.9 Tricuspid Valve TR Peak Hhrnrnmz198lb/sTR Peak [id number] <Conclusion> Left ventricle: thickness: normal; size: normal; overall ejection fraction: 45%: diastolic filling pressures: normal Mitral valve: annulus: normal: leaflets: normal: excursion: normal; no significant trans-mitral gradient:mild incompetence: left atrium:dilated Aortic valve: leaflets: mild thickening: excursion: normal; no significant trans-aortic gradient:mild incompetence: aortic root: normal Right sided Structures: Pulmonary valve: normal; no significant incompetence; Tricuspid valve: normal; no significant incompetence: Intra-cardiac hemodynamics: pulmonary systolic pressures: normal; central venous pressures: normal No pericardial effusion
--- NOTE | 2018-06-22 10:03 | VASCLAB ---
Date of service: 06/20/2018 PROCEDURE: Ultrasonography renal arterial evaluation HISTORY: hypertensive urgency COMPARISON: None available. TECHNIQUE: Real-time ultrasonography evaluation of the renal arteries were performed. Comparison is made to the aorta. Report prepared by PRAKASH Shields FINDINGS: AORTA: Patent. Peak systolic velocity 150 centimeters/second RIGHT RENAL ARTERY: Renal artery to aorta ratio: 0.6 * Proximal segment: Patent. Peak systolic velocity 103 centimeters/second * Mid segment: Patent. Peak systolic velocity 72 centimeters/second * Distal segment: Patent. Peak systolic velocity 68 centimeters/second Other findings: Right Kidney measures approximately 10.56 centimeters. LEFT RENAL ARTERY: Renal artery to aorta ratio: 0.6 * Proximal segment: Patent. Peak systolic velocity 90 centimeters/second * Mid segment: Patent. Peak systolic velocity 94 centimeters/second * Distal segment: Patent. Peak systolic velocity 82 centimeters/second Other findings: Left Kidney measures approximately 10.02 centimeters. IMPRESSION: No definite hemodynamically significant stenosis involving the renal arteries as visualized.
--- NOTE | 2018-06-22 17:36 | CARD ---
APPROVED REPORT Date of service: 06/19/2018 EKG Measurement Heart [id number] <Conclusion> Normal sinus rhythm Left bundle branch block Abnormal ECG
--- NOTE | 2018-06-22 18:23 | CARD ---
APPROVED REPORT Date of service: 06/18/2018 EKG Measurement Heart [id number] <Conclusion> Normal sinus rhythm Left bundle branch block Abnormal ECG
--- NOTE | 2018-06-22 18:24 | CARD ---
APPROVED REPORT Date of service: 06/18/2018 EKG Measurement Heart [id number] <Conclusion> Normal sinus rhythm Left bundle branch block Abnormal ECG
== END 2018-06-20 19:58 | disposition home or self-care (01) | DRG 192 ==
LOC: C.ER 13:52 → C.9E 15:38 → C.6T 16:07
PROVIDERS: ADMIT Hospitalist; ATTEND Hospitalist
PROC: 4A023N7 Measurement of Cardiac Sampling and Pressure, Left Heart, Percutaneous Approach (ICD-10-PCS; principal; 2018-06-19)
PROC: B211YZZ Fluoroscopy of Multiple Coronary Arteries using Other Contrast (ICD-10-PCS; 2018-06-19)
PROC: B215YZZ Fluoroscopy of Left Heart using Other Contrast (ICD-10-PCS; 2018-06-19)
DX: I16.0 Hypertensive urgency (principal); I50.9 Heart failure, unspecified; I44.7 Left bundle-branch block, unspecified; I11.0 Hypertensive heart disease with heart failure; L76.32 Postprocedural hematoma of skin and subcutaneous tissue following other procedure; I25.10 Atherosclerotic heart disease of native coronary artery without angina pectoris; Y84.0 Cardiac catheterization as the cause of abnormal reaction of the patient, or of later complication, without mention of misadventure at the time of the procedure

== ENCOUNTER 2018-10-21 07:09 | Day surgery (SDC) | payer OTHER ==
[2018-10-07 11:21] VITALS: BMI 22.1
[~2018-10-21 07:09] MED LIST: Ciprofloxacin 0.3% OPTH SOLN OS SCH; Cyclopentolate 1% Opth (2 ml) OS SCH; Ketorolac Tromethamine 0.5% Opth Soln (3 ml) OS SCH; Lactated Ringer's 500 ML IV ONE; Phenylephrine 2.5% Opht Soln OS SCH; Tropicamide 0.5% Opht Sol OS SCH
[2018-10-21] MEDS ORDERED: Povidone Iodine Ophthalmic 5% Soln ONE (07:45)
[2018-10-21] MEDS ORDERED: Carbachol 0.01% IO ONE (07:45)
[2018-10-21] MEDS ORDERED: Tetracaine 0.5% Ophth (OR ONLY) ONE (07:47)
[2018-10-21] MEDS ORDERED: Chondroitin/Hyaluronate Opth Syringe KIT (0.55 ml-0.5 ml) IO ONE (07:47)
[2018-10-21] MEDS ORDERED: Tobramycin/Dexamethasone OPHT OINT ONE (07:49)
[2018-10-21] MEDS ORDERED: Hyaluronidase Human, Recombi 150 U/ML VIAL ONE (07:55)
[2018-10-21] MEDS ORDERED: Lactated Ringer's 500 ML IV ONE (08:31)
[2018-10-21] MEDS ORDERED: Lidocaine 2% MPF (5 ml) Inj ONE (09:41)
[2018-10-21] MEDS ORDERED: Midazolam 2 MG/2 ML VIAL ONE (09:55)
[2018-10-21 11:12] VITALS: RESP 16; O2SAT 98
[2018-10-21 11:27] VITALS: BP 135/74; PULSE 65; TEMP 97.5
--- NOTE | 2018-10-21 21:22 | OP ---
PROCEDURE DATE: 10/21/2018 PREOPERATIVE DIAGNOSIS: Mature cataract, left eye. POSTOPERATIVE DIAGNOSIS: Mature cataract, left eye. PROCEDURE: Phacoemulsification, left eye, insertion of posterior chamber lens implant. SURGEON: Mark Lopez MD ANESTHESIA TYPE: Local intravenous sedation. DESCRIPTION OF PROCEDURE: The patient was brought into the operating room, placed in supine position, prepped and draped in the usual fashion for ophthalmic surgery. Lid speculum was inserted, lids and exposing globe. A side-port incision was made superiorly and inferiorly with a disposable sharp blade. Anterior chamber was filled with Viscoat. A near clear corneal incision was made temporally with a 2.75-mm keratome. Capsulorrhexis was then performed with Utrata forceps. Hydrodissection carried out with balanced salt solution. Nucleus was phacoemulsified. Remaining cortical fragments were removed with a split irrigation and aspiration system. The capsular sac was filled with Provisc. A posterior chamber lens was then injected into the capsular sac and rotated into horizontal position. Provisc was aspirated out of the anterior chamber. The pupil was constricted with Miochol. The wound was found to be watertight. Topical Betadine, Timoptic, and TobraDex ointment and pressure patch were applied. The patient tolerated the procedure well. Mark Lopez MD
== END 2018-10-21 11:36 | disposition home or self-care (01) ==
LOC: C.SDS 07:09
PROVIDERS: ATTEND Ophthalmology
DX: H25.22 Age-related cataract, morgagnian type, left eye (principal)
CPT/HCPCS: 66984; J2250; J3010; J3470; J7120; V2632

== ENCOUNTER 2018-11-04 07:54 | Day surgery (SDC) | payer OTHER ==
[2018-10-07 11:21] VITALS: BMI 22.1
[~2018-11-04 07:54] MED LIST changes: +Carbachol 0.01% IO ONE; +Chondroitin/Hyaluronate Opth Syringe KIT (0.55 ml-0.5 ml) IO ONE; +Ciprofloxacin 0.3% OPTH SOLN OD SCH; -Ciprofloxacin 0.3% OPTH SOLN OS SCH; +Cyclopentolate 1% Opth (2 ml) OD SCH; -Cyclopentolate 1% Opth (2 ml) OS SCH; +Hyaluronidase Human, Recombi 150 U/ML VIAL ONE; +Ketorolac Tromethamine 0.5% Opth Soln (3 ml) OD SCH; -Ketorolac Tromethamine 0.5% Opth Soln (3 ml) OS SCH; +Lidocaine 2% MPF (5 ml) Inj ONE; +Phenylephrine 2.5% Opht Soln OD SCH; -Phenylephrine 2.5% Opht Soln OS SCH; +Povidone Iodine Ophthalmic 5% Soln ONE; +Tetracaine 0.5% Ophth (OR ONLY) ONE; +Tropicamide 0.5% Opht Sol OD SCH; -Tropicamide 0.5% Opht Sol OS SCH
[2018-11-04] MEDS ORDERED: Tropicamide 1% Opht SOLUTION OD ONE (09:00)
[2018-11-04] MEDS ORDERED: Lactated Ringer's 500 ML IV ONE (09:11)
[2018-11-04] MEDS ORDERED: Midazolam 2 MG/2 ML VIAL ONE (09:51)
[2018-11-04] MEDS: Tobramycin/Dexamethasone OPHT OINT ONE ×2 (10:19→10:25)
[2018-11-04 11:15] VITALS: O2SAT 97
[2018-11-04 12:38] VITALS: BP 136/72; PULSE 75; RESP 16; TEMP 97.9
--- NOTE | 2018-11-04 19:29 | OP ---
PROCEDURE DATE: 11/04/2018 PREOPERATIVE DIAGNOSIS: Mature cataract, right eye. POSTOPERATIVE DIAGNOSIS: Mature cataract, right eye. OPERATIVE PROCEDURE: Phacoemulsification, right eye, insertion of posterior chamber lens implant. SURGEON: Mrak Lopez MD ANESTHESIA: Local with intravenous sedation. ANESTHESIOLOGIST: . PROCEDURE: The patient was brought into the operating room, placed in supine position, prepped and draped in the usual fashion for ophthalmic surgery. Lid speculum was inserted, lids and exposing globe. A side-port incision was made superiorly and inferiorly with a disposable sharp blade. Anterior chamber was filled with Viscoat. A near clear corneal incision was made temporally with a 2.75-mm keratome. Capsulorrhexis was then performed with Utrata forceps. Hydrodissection carried out with balanced salt solution. Nucleus was phacoemulsified. Remaining cortical fragments were removed with a split irrigation and aspiration system. The capsular sac was filled with Provisc. A posterior chamber lens was then injected into the capsular sac and rotated into horizontal position. Provisc was aspirated out of the anterior chamber. The pupil was constricted with Miochol. The wound was found to be watertight. Topical Betadine, Timoptic, and TobraDex ointment and pressure patch were applied. The patient tolerated the procedure well. Mark Lopez MD
== END 2018-11-04 11:36 | disposition home or self-care (01) ==
LOC: C.SDS 07:54
PROVIDERS: ATTEND Ophthalmology
DX: H26.9 Unspecified cataract (principal)
CPT/HCPCS: 66984; J2250; J3010; J3470; J7120